=== PATIENT | male | born 1925 | race Caucasian/White ===

== ENCOUNTER 2016-05-03 09:13 | Outpatient (CLI) | payer OTHER ==
[~2016-05-03 09:13] MED LIST: ANORO ELLIPTA IN; FLOMAX0.4 MG PO; MAGNESIUM400 MG PO; METOPROLOL SUCC25 MG PO; PRESERVISION AREDS PO; PROAIR HFA IN; VITAMIN D-31000 UNIT PO; XARELTO10 MG PO
--- NOTE | 2016-05-03 11:16 | DIAGNOSTIC IMAGING REPORT ---
PROCEDURE: CT THORAX ABD PELVIS W/CONT INDICATION: LUNG CANCER, follow-up TECHNIQUE: 125 ml of Isovue 300 injected intravenously and axial images were obtained of the entire thorax, abdomen, and pelvis with sagittal and coronal reformations. COMPARISON: CT chest 02/23/2016, CT chest/abdomen/pelvis 12/29/2015 and 02/21/2015 FINDINGS: THORAX: Right suprahilar mass with increasing central necrosis (3 cm) and postobstructive pneumonitis. Increasing right upper lobe volume loss and small right pleural effusion. There has been some progression of the peripheral thrombus to the right upper lobe pulmonary artery. There are no additional pulmonary masses. No mediastinal adenopathy. Moderate atherosclerosis of the aorta. No dissection or aneurysm. Healing left eighth rib fracture. Mild progression of thoracic spine lytic changes with new 40% T5 and 35% T6 compression fractures. Stable mild T8 and T9 compression fractures. Moderate degenerative changes of the spine. ABDOMEN: Stable hypoenhancing hepatic lesions since 02/21/2015 most consistent with cysts, largest in the left hepatic lobe 1.2 cm. Stable 2.8 cm right adrenal mass. Mild bilateral renal cortical atrophy with stable small cysts. The gallbladder, pancreas, spleen and left adrenal gland are normal. Severe atherosclerosis of the aorta. Moderate stool. Heterogeneous bone marrow. Severe degenerative changes. Left L5 laminectomy. PELVIS: There are three small bladder calculi. Normal appendix. Mild diverticulosis. Enlarged prostate with dystrophic calcifications. Mild circumferential bladder wall thickening, unchanged. Enlarged perirectal lymph nodes bilaterally (largest on the right, 1.2 cm short axis). Mild levoscoliosis with severe degenerative changes. Inhomogeneous appearance of the bones suggestive of metastases. IMPRESSION: 1. Right suprahilar mass with increasing central necrosis, small right pleural effusion and peripheral thrombus of the right upper lobe pulmonary artery. There has also been progression of the right upper lobe volume loss. 2. New 40% T5 and 35% T6 compression fractures 3. Stable mild T8 and T9 compression fractures 4. Healing left eighth rib fracture 5. Heterogeneous changes of the spine and pelvis, osteopenia versus osseous metastases 6. Stable 2.7 cm right adrenal mass 7. Small bladder calculi 8. Enlarged prostate 9. Two enlarged perirectal lymph nodes 10. Results discussed with Dr. Chen All CT scans at this facility use dose modulation, iterative reconstruction, and/or weight-based dosing when appropriate to reduce radiation dose to as low as reasonably achievable.
== END 2016-05-03 23:00 ==
LOC: CT SRH 09:13
DX: C34.90 Malignant neoplasm of unspecified part of unspecified bronchus or lung (principal); J90 Pleural effusion, not elsewhere classified; M48.54XA Collapsed vertebra, not elsewhere classified, thoracic region, initial encounter for fracture; N21.0 Calculus in bladder; N40.0 Benign prostatic hyperplasia without lower urinary tract symptoms; R59.1 Generalized enlarged lymph nodes

== ENCOUNTER 2016-05-27 09:57 | Outpatient (CLI) | payer OTHER ==
--- NOTE | 2016-05-27 11:23 | DIAGNOSTIC IMAGING REPORT ---
PROCEDURE: CT SINUS/FACIAL BONES W/O CONT CLINICAL INDICATION: LUNG CA,F/U BONY ABNORMALITIES NOTED ON MRI @ [facility] TECHNIQUE: Noncontrast axial images with coronal reformations. COMPARISON: Brain MRI from [facility] 05/17/2016 FINDINGS: There are radiolucencies of the mandibular condyles bilaterally and the C2 vertebral body corresponding to the areas of increased T2 signal on the outside MRI. There are also some C2 radiolucencies with sclerotic margins. There is no spurring of the TMJs. There is mild mucosal thickening of the bilateral maxillary, ethmoid and right sphenoid sinuses. Frontal sinuses are clear. Mastoids are clear. Surgical changes of the bilateral globes. Orbits are otherwise unremarkable. IMPRESSION: 1. Radiolucencies of C2 and the bilateral mandibular condyles corresponding to the MRI findings, suspicious for metastatic disease. Osteopenia is also a consideration. All CT scans at this facility use dose modulation, iterative reconstruction, and/or weight-based dosing when appropriate to reduce radiation dose to as low as reasonably achievable.
--- NOTE | 2016-05-27 11:23 | DIAGNOSTIC IMAGING REPORT ---
PROCEDURE: CT SINUS/FACIAL BONES W/O CONT CLINICAL INDICATION: LUNG CA,F/U BONY ABNORMALITIES NOTED ON MRI @ [facility] TECHNIQUE: Noncontrast axial images with coronal reformations. COMPARISON: Brain MRI from [facility] 05/17/2016 FINDINGS: There are radiolucencies of the mandibular condyles bilaterally and the C2 vertebral body corresponding to the areas of increased T2 signal on the outside MRI. There are also some C2 radiolucencies with sclerotic margins. There is no spurring of the TMJs. There is mild mucosal thickening of the bilateral maxillary, ethmoid and right sphenoid sinuses. Frontal sinuses are clear. Mastoids are clear. Surgical changes of the bilateral globes. Orbits are otherwise unremarkable. IMPRESSION: 1. Radiolucencies of C2 and the bilateral mandibular condyles corresponding to the MRI findings, suspicious for metastatic disease. Osteopenia is also a consideration. All CT scans at this facility use dose modulation, iterative reconstruction, and/or weight-based dosing when appropriate to reduce radiation dose to as low as reasonably achievable.
== END 2016-05-27 23:00 ==
LOC: CT SRH 09:57
DX: C34.90 Malignant neoplasm of unspecified part of unspecified bronchus or lung (principal); R93.7 Abnormal findings on diagnostic imaging of other parts of musculoskeletal system

== ENCOUNTER 2016-06-22 10:29 | Outpatient (CLI) | payer OTHER ==
--- NOTE | 2016-06-22 17:40 | DIAGNOSTIC IMAGING REPORT ---
PROCEDURE: NM BONE/JOINT WHOLE BODY INDICATION: Lung carcinoma. Assess for osseous metastatic disease. Abnormal mandibular condyles. TECHNIQUE: 25 mCi of technetium-99m MDP. Delayed static whole body images were obtained in the anterior and posterior projections. In addition, thin cut axial SPECT images were obtained from the skull base through the mid thorax with sagittal, axial, and coronal re-formations followed by MIP reconstructions. COMPARISON: Comparison is made to CT facial bone (05/27/2016) and CT thorax, abdomen, and pelvis (05/03/2016). Comparison is also made to MRI brain from [facility] (05/17/2016). FINDINGS: There are multiple foci in the ribs, upper sternum, upper thoracic spine (T1), upper cervical spine (C2, C6), compatible with metastatic disease. There are subacute or old compression fractures of the mid and lower thoracic spine which also demonstrate area suspicious for metastatic disease. There is mild to moderate uptake in the mandibular condyle suspicious for metastatic disease. There is a small focus of increased uptake in the left L2 pedicle which could represent degenerative change or metastatic disease. Mild increased uptake in the distal MRI could represent metastatic disease. Pelvis and lower extremities are normal. IMPRESSION: 1. There are multiple foci in the ribs, thoracic spine, cervical spine, and mandibular condyles which are considered highly suspicious for metastatic disease.
== END 2016-06-22 23:00 ==
LOC: NM SRH 10:29
DX: C34.90 Malignant neoplasm of unspecified part of unspecified bronchus or lung (principal); R93.7 Abnormal findings on diagnostic imaging of other parts of musculoskeletal system

== ENCOUNTER 2016-07-29 11:27 | Outpatient (CLI) | payer OTHER ==
--- NOTE | 2016-07-29 12:43 | DIAGNOSTIC IMAGING REPORT ---
PROCEDURE: CT THORAX ABD PELVIS W/CONT INDICATION: LUNG CA, follow-up. TECHNIQUE: 125 ml of Isovue 300 injected intravenously and axial images were obtained of the entire thorax, abdomen, and pelvis with sagittal and coronal reformations. COMPARISON: CT chest/abdomen/pelvis 05/03/2016. FINDINGS: THORAX: Slight reduction in the size of the necrotic right suprahilar mass which measures 6.2 x 4.9 cm, previously 7 x 6.3 cm. No additional pulmonary masses. Improved tiny right pleural effusion. No change in the right upper lobe pulmonary artery thrombus. No adenopathy. Moderate atherosclerosis of the aorta. Coronary atherosclerosis. Stable mild cardiomegaly with small pericardial effusion. Multiple lytic lesions throughout the thoracic spine. Stable T5, T6, T8 and T9 compression fractures. Old left eighth rib fracture. ABDOMEN: Several stable hypoenhancing hepatic lesions most consistent with cysts, largest 1.2 cm in the left hepatic lobe. Gallbladder, pancreas, spleen and left adrenal gland are normal. Stable 2.8 cm right adrenal mass. Mild bilateral renal cortical atrophy and stable small cysts. Severe atherosclerosis of the abdominal aorta. Progression of L2 lytic changes. L5 laminectomy. Severe degenerative changes of the spine. PELVIS: Several bladder calculi which have progressed in number and size, largest 1 cm. Mild bladder wall thickening. Enlarged prostate (5 cm), with central dystrophic calcification. Normal appendix. Stable enlarged perirectal lymph nodes, largest on the right measures 1.2 cm short axis. No pelvic mass or free fluid. Stable lytic lesions. IMPRESSION: 1. Slight reduction in the size of the right suprahilar necrotic mass and improved tiny residual right pleural effusion. Stable thrombus of the right upper lobe pulmonary artery. 2. 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 Stable 2.8 cm right adrenal mass. 4. Stable T5, T6, T and T9 compression fractures, likely pathological 5. Small pericardial effusion 6. Progression of bladder calculi 7. Enlarged prostate with urinary bladder wall thickening which may represent trabeculation versus cystitis. Correlate clinically 8. Stable enlarged perirectal lymph nodes All CT scans at this facility use dose modulation, iterative reconstruction, and/or weight-based dosing when appropriate to reduce radiation dose to as low as reasonably achievable.
== END 2016-07-29 23:00 | disposition home or self-care (01) ==
LOC: CT SRH 11:27
DX: C34.90 Malignant neoplasm of unspecified part of unspecified bronchus or lung (principal); C79.51 Secondary malignant neoplasm of bone; I31.3 Pericardial effusion (noninflammatory); N21.0 Calculus in bladder; N40.1 Benign prostatic hyperplasia with lower urinary tract symptoms

== ENCOUNTER 2016-10-20 11:09 | Outpatient (CLI) | payer OTHER ==
--- NOTE | 2016-10-20 14:52 | DIAGNOSTIC IMAGING REPORT ---
PROCEDURE: US PANCREAS NEEDLE BIOPSY INDICATION: PANCREAS FNA TECHNIQUE: Written informed consent was obtained from the patient prior to the procedure. Risks discussed included but were not limited to bleeding, infection, injury to adjacent structures, pain, postprocedure pancreatitis, nondiagnostic sample, and allergic reaction. It was agreed to proceed. Supine position on the CT table. Preliminary CT imaging demonstrated 3.0 cm pancreatic body mass located anterior within the gland, just deep to the skin surface. An appropriate biopsy window was present, however there was air-filled colon immediately lateral and caudal to the mass. The ultrasound machine was then brought in, and using a high-frequency linear transducer, superior images of the pancreatic mass were acquired. Sonography demonstrated a solid hypoechoic, mildly heterogeneous, moderately vascular mass measuring approximately 3.6 x 3.4 x 2.5 cm. The distal pancreatic duct is dilated measuring about 6.5 mm. The dilated side branch in the proximal pancreas adjacent to the mass measures about 2.6 mm. A good biopsy window was present where vascular and enteric structures could be easily avoided. Using sonographic guidance, an appropriate skin entry site was chosen and marked. The skin was prepped and draped in the usual sterile fashion. Skin and subcutaneous tissue was anesthetized thoroughly with 1% lidocaine. Under continuous sonographic guidance, a 25 gauge needle was directed into pancreatic mass. An aspirate specimens obtained. This was repeated five more times. Specimens were placed into cytology solution. The specimen was taken to the lab. Static and cine sonographic images were acquired documenting the needle in position within the mass. Following assessment of sample adequacy, hemostasis was achieved, the skin was cleansed, and a sterile bandage was applied. The patient was helped off the table. The patient left the radiology department in stable condition with standard post procedure instructions. The patient tolerated the procedure quite well and there were no immediate complications. COMPARISON: CT abdomen pelvis 10/14/2016, 07/29/2016, 05/03/2016. FINDINGS: Adequate biopsy samples were obtained after six passes with a 25-gauge aspirate needle. IMPRESSION: 1. Successful ultrasound-guided pancreatic body mass biopsy. 2. Pathology is pending.
== END 2016-10-20 23:00 ==
LOC: CT SRH 11:09
PROC: BF47ZZZ Ultrasonography of Pancreas (ICD-10-PCS; principal; 2016-10-20)
PROC: 0FBG3ZX Excision of Pancreas, Percutaneous Approach, Diagnostic (ICD-10-PCS; principal; 2016-10-20)
DX: K86.9 Disease of pancreas, unspecified (principal)